=== PATIENT | female | born 1945 | race Caucasian/White ===

== ENCOUNTER 2016-11-21 18:18 | Inpatient (IN) | payer OTHER ==
[2016-11-25] MEDS ORDERED: BUSPIRONE HCL5 MG PO (11:51)
[2016-11-25] MEDS ORDERED: CALCIUM 600 +1 EAC7 PO (11:51)
[2016-11-25] MEDS ORDERED: ACETAMINOPHEN325 MG PO (11:51)
[2016-11-25] MEDS ORDERED: ASPIR 8181 MG PO (11:51)
[2016-11-25] MEDS ORDERED: VITAMIN B-121000 MCG PO (11:52)
[2016-11-25] MEDS ORDERED: MOBIC7.5 MG PO (11:52)
[2016-11-25] MEDS ORDERED: KEPPRA500 MG PO (11:52)
[2016-11-25] MEDS ORDERED: MIRTAZAPINE15 MG PO (11:57)
[2016-11-25] MEDS ORDERED: LOPRESSOR50 MG PO (11:57)
[2016-11-25] MEDS ORDERED: PRAVACHOL40 MG PO (11:58)
[2016-11-25] MEDS ORDERED: RISPERDAL0.5 MG PO (11:58)
[2016-11-25] MEDS ORDERED: ZESTRIL20 MG PO (11:58)
[2016-11-25] MEDS ORDERED: DAILY VITE1 EACH PO (11:58)
[2016-11-25] MEDS ORDERED: ZANTAC150 MG PO (11:58)
[2016-11-25] MEDS ORDERED: NICOTINE PATCH1 EAC2 TD (11:59)
[2016-11-25] MEDS ORDERED: TRAZODONE HCL50 MG PO (11:59)
[2016-11-25] MEDS ORDERED: ULTRAM50 MG PO (11:59)
[2016-11-25] MEDS ORDERED: ZOFRAN4 MG PO (12:00)
[2016-11-25] MEDS ORDERED: PHENERGAN25 M1 PO (12:00)
[2016-11-25] MEDS ORDERED: ACETAMINOPHEN650 MG RC (12:00)
[2016-11-25] MEDS ORDERED: DULCOLAX5 MG PO (12:01)
== END 2016-11-25 15:40 | DRG 644 ==
LOC: ER 18:18 → MED 22:20
PROVIDERS: ADMIT Internal Medicine
DX: E22.2 Syndrome of inappropriate secretion of antidiuretic hormone (principal); S42.202A Unspecified fracture of upper end of left humerus, initial encounter for closed fracture; T50.995A Adverse effect of other drugs, medicaments and biological substances, initial encounter; F20.9 Schizophrenia, unspecified; F39 Unspecified mood [affective] disorder; I10 Essential (primary) hypertension; F17.210 Nicotine dependence, cigarettes, uncomplicated; W19.XXXA Unspecified fall, initial encounter; Z91.81 History of falling; Y92.9 Unspecified place or not applicable; Z87.898 Personal history of other specified conditions; M19.90 Unspecified osteoarthritis, unspecified site; E78.5 Hyperlipidemia, unspecified; K21.9 Gastro-esophageal reflux disease without esophagitis; Z79.82 Long term (current) use of aspirin; Z79.899 Other long term (current) drug therapy; Z95.810 Presence of automatic (implantable) cardiac defibrillator; Z96.643 Presence of artificial hip joint, bilateral; R63.1 Polydipsia; R26.9 Unspecified abnormalities of gait and mobility
CPT/HCPCS: 36415; 97161-GP

== ENCOUNTER 2016-11-21 18:18 | Emergency (ER) | payer OTHER | END 2016-11-21 22:20 | disposition critical access hospital (66) | LOC: ER 18:18 | DX: S42.212A Unspecified displaced fracture of surgical neck of left humerus, initial encounter for closed fracture (principal); S80.01XA Contusion of right knee, initial encounter; I10 Essential (primary) hypertension; Z79.82 Long term (current) use of aspirin; Z79.899 Other long term (current) drug therapy; W19.XXXA Unspecified fall, initial encounter | CPT/HCPCS: 36415 ==